=== PATIENT | female | born 1965 | race Caucasian/White ===

== ENCOUNTER 2022-06-04 13:43 | Outpatient (CLI) | payer OTHER, SELFPAY ==
--- NOTE | 2022-06-04 13:51 | MM_ITS ---
WS: [id number] Bilateral screening 3D tomosynthesis digital mammogram, 06/04/2022 Clinical Data: SCREENING Comparison: None. Findings: The breast parenchymal pattern shows fibroglandular tissue. No spiculated masses or clustered calcifi cations are seen. There are no secondary signs of carcinoma. There are lymph nodes in both axilla. MM/[place] [id number] Impression: 1. Negative bilateral mammogram unchanged. 2. Recommend annual screening mammograms. BIRADS: 1-Negative FOLLOW UP: 1 Year Follow-up The CAD film tests checker was used.
== END 2022-06-04 13:44 | disposition home or self-care (01) ==
LOC: RAD 13:44
PROVIDERS: PCP Family Medicine; Visit Provider Family Medicine
DX: Z12.31 Encounter for screening mammogram for malignant neoplasm of breast (principal)
CPT/HCPCS: 77063; 77067

== ENCOUNTER 2022-06-09 13:21 | Outpatient (CLI) | payer OTHER, SELFPAY ==
--- NOTE | 2022-06-09 13:43 | MR_ITS ---
WS: [id number] MRI LUMBAR SPINE NONCONTRAST TECHNIQUE: Sagittal T1, T2 and STIR imaging. Axial T1 and T2 imaging. CLINICAL INFORMATION: ACQUIRED LEFT FOOT DROP COMPARISON: None. FINDINGS: Mild lumbar curve. No acute compression. Disc space narrowing worse at L3-L5. Small central protrusio ns in the cervical spine on the rn advice imaging with mild central canal stenosis at C5-C6 and C6-C7 wit h slight indentation on cervical cord. L1-L2: Normal. L2-L3: Mild annular bulging. Narrowing of the LEFT subarticular recess. Mild facet arthropathy. Priscila en are patent. L3-L4: Mild disc bulging with mild central canal stenosis. Slight impingement on the traversing RIGHT greater than LEFT L4 nerve roots. Mild facet arthropathy. Mild RIGHT and no significant LEFT foramin al narrowing. L4-L5: Disc osteophyte complex with endplate ridging. Slight impingement on traversing L5 nerve roots bilaterally. Mild RIGHT greater than LEFT foraminal narrowing. Mild facet arthropathy. L5-S1: Mild disc osteophyte complex with endplate ridging. Slight effacement of ventral thecal sac. M ild bilateral foraminal narrowing. Visualized pelvic bony structures: Normal. Paravertebral soft tissues: Normal. MR/MR lumbar spine wo con* [id number] IMPRESSION: 1. Mild lumbar curve. No acute compression. 2. Mild central canal stenosis L3-L4 due to disc bulging in combination with f acet arthropathy and ligamentum flavum hypertrophy. Impingement traversing RIGH T greater than LEFT L4 nerve roots. 3. Annular bulging L4-L5 with slight impingement on the traversing L5 nerve ro ots. 4. Mild annular bulging L2-L3 with slight impingement on the traversing LEFT L 3 nerve root in the subarticular recess. 5. Mild foraminal narrowing worse at RIGHT L3-L4, RIGHT greater than LEFT L4-L 5, and LEFT greater than RIGHT L5-S1. 6. Small central disc protrusions in the cervical spine at C5-C6 and C6-C7 wit h mild central canal stenosis.
== END 2022-06-09 13:22 | disposition home or self-care (01) ==
LOC: RAD 13:22
PROVIDERS: PCP Family Medicine; Visit Provider Family Medicine
DX: M21.372 Foot drop, left foot (principal); M48.061 Spinal stenosis, lumbar region without neurogenic claudication; M51.26 Other intervertebral disc displacement, lumbar region
CPT/HCPCS: 72148

== ENCOUNTER 2022-07-09 10:39 | Emergency (ER) | payer OTHER, SELFPAY ==
[2022-07-09 10:59] VITALS: BP 125/84; PULSE 84; RESP 14; TEMP 36.4; O2SAT 99; BMI 28.1
--- NOTE | 2022-07-09 11:10 | XR_ITS ---
WS: [id number] Left elbow, 3 views, 07/09/2022 Clinical Data: fall injury to left elbow Comparison: None. Findings: No fractures or dislocations are seen. The radial head is normal. The soft tissues are unremarkable. XR/XR elbow LT min 3V* [id number] Impression: Negative left elbow.
--- NOTE | 2022-07-09 11:23 | XR_ITS ---
WS: [id number] Left shoulder, 3 views, 07/09/2022 Clinical Data: fracture? Comparison: None. Findings: There is a comminuted impacted fracture of the left humeral head and neck. The humeral head still res ides in the glenoid fossa. The AC joint is normal. The adjacent left scapula, left ribs and left clavicle show no new fractures. There is an old healed fracture of the midshaft of the left clavicle. XR/XR shoulder LT min 2V* [id number] Impression: Comminuted impacted fracture of the left humeral head and neck.
--- NOTE | 2022-07-09 11:28 | ED_ITS ---
HPI - Fall General: Chief Complaint: Fall Stated Complaint: Fall, Left arm injury Time Seen by Provider: 07/09/22 11:18 Source: patient Mode of arrival: ambulatory Limitations: no limitations History of Present Illness: This patient comes to the emergency department because of fall injury. She was in her house walking and tripped over a carpet or rug in the floor. She states that she fell to her left striking the door frame with her face and then fell to the floor. He states she eventually ended up on her right side but now has pain in her left arm. She denies loss of consciousness.She states that she cannot move her left arm because of pain. Fall from: standing Fall witnessed: no Place fall occurred: home Loss of consciousness: None Location of injury - extremities: Left: shoulder, arm and elbow Severity: moderate Associated symptoms-after fall: Reports no associated symptoms; Denies abdominal pain, chest pain, headache(s), neck pain or vertigo Review of Systems Eyes: Denies: change in vision Card: Denies: chest pain, palpitations, syncope or pre-syncope Resp: Denies: dyspnea GI: Denies: abdominal pain, nausea, vomiting or diarrhea : Denies: flank pain Musc: Reports: extremity pain and limited range of motion; Denies: neck pain, back pain or extremity swelling Skin/Breast: Denies: rash Neuro: Denies: headache(s), numbness in extremities, weakness in extremities, dizziness or vertigo Moses/Lymph: Denies: easy bruising or easy bleeding Physical Exam Narrative: EXAM NARRATIVE: She is alert holding her left arm in a position of comfort. She answers questions in a goal-directed fashion. Const: COMMON NORMALS: no acute distress, average body habitus, patient oriented x3, healthy appearing and alert GENERAL APPEARANCE: cooperative HENMT: COMMON NORMALS: normocephalic and Normal external nose present HEAD & SCALP: normocephalic and contusion (Left lateral face at the supraorbital ridge. No step-off. No laceration) FACE & SINUS: sinuses nontender and face symmetric FACE & SINUS IMAGES: 1. Contusion NOSE: Normal external nose present Eye: COMMON NORMALS: Equal, round and reactive pupils present, EOMs intact bilaterally and conjunctivae normal CONJUNCTIVA: Yes conjunctivae normal PUPIL: Yes Equal, round and reactive pupils present Neck/C-Spine: COMMON NORMALS: full ROM, Thyroid normal and No carotid bruits THYROID: Thyroid normal CERVICAL SPINE: Yes cervical ROM normal, No Cervical spine tenderness and No step off deformity OTHER: Minimal tenderness still left superior trapezius Chest: COMMONS NORMALS: normal inspection of the chest and normal palpation of entire chest wall Resp: COMMON NORMALS: normal respiratory effort, No use of accessory muscles and clear to auscultation bilaterally AUSCULTATION: clear to auscultation bilaterally Cardio: COMMON NORMALS: regular rate, regular rhythm and Peripheral pulses 2+ throughout RATE: regular rate RHYTHM: regular rhythm PERIPHERAL PULSES: Peripheral pulses 2+ throughout Back/Pelvis: COMMON NORMALS: thoracic and lumbar spine normal to inspection, no thoracic nor lumbar tenderness and thoraco-lumbar ROM normal PELVIS: Yes no pain with anterior-posterior compression and Yes no pain with lateral compression SACROILIAC JOINTS: Yes SI joints normal Extremity: NARRATIVE EXTREMITY EXAM: Examination with attention to her left arm reveals left arm to be held in a position of comfort which is flexed at the elbow and internally rotated the shoulder. Palpation of the wrist and elbow reveals no tenderness, obvious deformity etc. She resists any motion at the left glenohumeral joint. She is neurovascular intact distally with intact pulses, intact sensation. Neuro: COMMON NORMALS: patient oriented x3, moves all extremities, no focal motor deficits and no sensory deficits noted SENSORIUM/ORIENTATION: Yes alert Course Reevaluation(s): Reevaluation #1: Patient remained stable. Repeat examination reveals no new or focal findings other than left upper extremity injury as well as a contusion to the left supraorbital ridge. Discussed treatment plan and expected course. Both patient and daughter voiced understanding. Time: 12:01 Vital Signs: Vital signs: Vital Signs Temperature 97.6 F 07/09/22 10:59 Pulse Rate 67 07/09/22 11:55 Respiratory Rate 15 07/09/22 11:55 Blood Pressure 144/87 07/09/22 11:55 Pulse Oximetry 99 07/09/22 11:55 Oxygen Delivery Me thod 07/09/22 11:55 MDM - Fall Medical Decision Making 56-year-old lady who presented to our emergency department after suffering a ground-level fall at home without syncope or prodrome. No associated loss of consciousness or other serious complaints. She has a isolated contusion to her left supraorbital ridge without laceration etc. She also has a impacted left glenohumeral fracture without dislocation. Plan will be to place her in a sling, provide analgesia, follow-up with orthopedics. Lab Data I reviewed the patient's lab results. Radiology Impressions Elbow X-Ray 07/09/22 11:10 Impression: Negative left elbow. Shoulder X-Ray 07/09/22 11:23 Impression: Comminuted impacted fracture of the left humeral head and neck. Discharge Plan Discharge Patient Disposition: Home Clinical Impression: Fall from ground level, Closed left humeral fracture, Contusion of face Condition: Stable Prescriptions: New hydrocodone-acetaminophen 5-325 mg tablet 1 tab PO TID PRN (Reason: pain) Qty: 20 0RF Discharge Orders: Discharge ED (Routine); Ordered 07/09/22 Ordered By: Kayode Dixon Referrals: Guillermo Madrid MD [Primary Care Provider] - Favio Michele DO [Physician] - 7-10 days Discharge Diet: Usual diet Discharge Activity: Limit activity as instructed Patient Instructions: Fractures - Humerus, Opioid Safety, Pain Management Activity Restrictions/Additional Instructions: Use sling for comfort. You may use the medications provided for pain control as well. You will likely find that propping yourself up with pillows to keep yourself from rolling over in bed will be helpful when you sleep. You will be contacted by orthopedic surgery office for follow-up appointment. Should you develop any new, worsening or concerning symptoms of any kind return to this emergency department for reevaluation. Coding Level of Care Code ED Paid Search Manager for Edna Fwjeanmar[facility] Exam Comprehensive
[2022-07-09 11:55] VITALS: BP 144/87; PULSE 67; RESP 15; O2SAT 99
[2022-07-09] MEDS: HYDROcodone-acetaminophen 7.5-325 mg Tablet 1 TAB PO (12:23)
[2022-07-09 12:52] VITALS: BP 135/77; PULSE 75; RESP 16; O2SAT 99
--- NOTE | 2022-07-09 13:31 | DCPLANNER ---
Addendum entered by Juliann Malone 07/21/22 15:26: manager educational called to confirm that [facility] received patients information. manager educational was told that clinic did receive patients information, it will be reviewed, clinic will call patient with appointment information. Addendum entered by Juliann Malone 07/21/22 13:06: Patient called returned case inspector back, stating that she would like to be referred to [facility]. manager educational faxed patients information to [facility], patients information will be reviewed. Clinic will call patient with appointment information. Addendum entered by Juliann Malone 07/17/22 15:11: manager educational received the following message from the ortho clinic: Patient is needing to be referred to an Orthopedic Surgeon in [place]! If you have any questions about this, feel free to call me. My extension is [phone]! manager educational called patient, unable to speak with patient at this time, left a voicemail for patient to return showcase maker phone call. Addendum entered by Juliann Malone 07/09/22 16:13: Patient has a follow up appointment scheduled for July at 11:[address] Michele at ortho. Clinic will call patient with appointment information. Original Note: manager educational had message to schedule a follow up appointment for patient with ortho. manager educational sent patients information to the front office staff at ortho. Patients information will be printed and reviewed. Clinic will call patient with appointment information.
== END 2022-07-09 12:48 | disposition home or self-care (01) ==
PROVIDERS: Emergency Provider Emergency Medicine; PCP Family Medicine
DX: S42.352A Displaced comminuted fracture of shaft of humerus, left arm, initial encounter for closed fracture (principal); W01.198A Fall on same level from slipping, tripping and stumbling with subsequent striking against other object, initial encounter
CPT/HCPCS: 73030; 73080; 99283

== ENCOUNTER 2022-07-27 11:05 | Outpatient (CLI) | payer OTHER, SELFPAY ==
--- NOTE | 2022-07-27 | CT_ITS ---
WS: [id number] CT LEFT SHOULDER, NONCONTRAST, 3-D. HISTORY: FRACTURE Technique: All CT scans at [facility] use at least one of these dose optimization techniques: automated exposure control; mA and/or kV adjustment per patient size (includes targeted exams where dose is matched to clinical indication); or iterative reconstruction. DLP: 322.33 mGy.cm COMPARISON: Radiographs 07/09/2022 Comminuted fractures involving the LEFT humeral head and neck. Avulsion of the greater tuberosity wit h mild displacement by 8 mm. No displacement of the humeral head from the glenoid. There is very mini mal impaction along the fracture line. Mild AC joint narrowing. There is a very small amount of soft tissue stranding around the humeral hea d. No acute clavicle fracture. Benign granuloma LEFT lower lobe. No rib fractures. CT/CT shoulder LT wo con* [id number] IMPRESSION: 1. Comminuted, mildly impacted and displaced fracture involving the LEFT humer al head and neck. 2. Mild avulsion and displacement by 8 mm of the greater tuberosity.
== END 2022-07-27 11:06 | disposition home or self-care (01) ==
PROVIDERS: PCP Electrodiagnostic Medicine; Visit Provider Family Medicine
DX: S42.295A Other nondisplaced fracture of upper end of left humerus, initial encounter for closed fracture; X58.XXXA Exposure to other specified factors, initial encounter
CPT/HCPCS: 73200

== ENCOUNTER → 2022-09-29 12:57 | Outpatient (BNVA) | payer OTHER, SELFPAY | PROVIDERS: PCP Electrodiagnostic Medicine; Referring Provider Electrodiagnostic Medicine; Visit Provider Orthopaedic Surgery | DX: M48.062 Spinal stenosis, lumbar region with neurogenic claudication (principal) | CPT/HCPCS: 72110 ==

== ENCOUNTER 2023-10-05 12:44 | Outpatient (CLI) | payer OTHER, SELFPAY ==
--- NOTE | 2023-10-05 12:50 | XR_ITS ---
WS: [id number] DEXA (DUAL ENERGY X-RAY ABSORPTIOMETRY) Bone mineral density was performed using a [facility] machine. HISTORY: Post menopausal COMPARISON: None available. Lumbar spine BMD (L1-L4): 1.069 g/cm2 T score: -0.9 Z score: -0.8 Total hip BMD: Left: 0.807 g/cm2. T score: -1.6 Z score: -1.5 Right: 0.836 g/cm2. T score: -1.4 Z score: -1.2 10 year probability of a major osteoporotic fracture is 16.2%. XR/XR DEXA axial skeleton* [id number] IMPRESSION: OSTEOPENIA based upon the WHO classification for females.
== END 2023-10-05 12:45 | disposition home or self-care (01) ==
LOC: RAD 12:48
PROVIDERS: PCP Electrodiagnostic Medicine; Visit Provider Electrodiagnostic Medicine
DX: M54.9 Dorsalgia, unspecified (principal); M85.88 Other specified disorders of bone density and structure, other site
CPT/HCPCS: 77080